=== PATIENT | male | born 1955 | race Caucasian/White ===

== ENCOUNTER 2024-06-25 06:57 | Day surgery (SDC) | payer MEDICARE, SELFPAY ==
[2024-06-20 07:45] VITALS: BMI 34.1
--- NOTE | 2024-06-22 10:36 | P.CONAN_ITS ---
Documented by User: Hamida Rodriguez NP 06/22/24 10:39 HPI - Anesthesia Eval Consult details Narrative: 68yo M for Right Cataract Extraction IOL Insertion No previous cataract on record Hx CMP (EF 68% by MRI 2021 at [facility]) [facility] Past Medical History Medical History Osteoarthritis Fatty liver Cardiomyopathy Obesity Diabetes Nephrolithiasis HTN (hypertension) Surgical History Surgical History Hx of cystoscopy History of hand surgery Social History Social History Are you DNR?: No Advance Directives: No Advance Directives Information Provided: Yes Advance Directives on File: No Recently lost weight without trying: No Eating poorly because of decreased appetite: No Nutrition Risks: No Nutritional Risk Meds Allergies Allergy/AdvReac Type Severity Reaction Status Date / Time amoxicillin [From Augmentin] Allergy Nausea and Verified 06/25/24 08:01 Vomiting clavulanic acid Allergy Nausea and Verified 06/25/24 08:01 [From Augmentin] Vomiting doxycycline Allergy Headache Verified 06/20/24 07:41 Home Medications ?Medication ?Instructions ?Recorded ?Confirmed ?Last Taken ?Type aspirin 81 mg tablet,delayed 81 mg PO DAILY 06/20/24 06/20/24 06/21/24 History release lisinopril 40 mg tablet 40 mg PO DAILY 06/20/24 06/20/24 06/25/24 History rosuvastatin 10 mg tablet 10 mg PO DAILY 06/20/24 06/25/24 06/24/24 History Exam Height,Weight and Vital Signs: Height 5 ft 7 in Weight 98.883 kg Assessment and Plan Assessment Anesthesia Assessment: Chart Reviewed Documented by User: Mary Siddiqi MD 06/25/24 09:23 HPI - Anesthesia Eval Consult details Narrative: 68yo M for Right Cataract Extraction IOL Insertion No previous cataract on record Hx CMP (EF 68% by MRI 2021 at [facility]). Patient states treated for CMP for 13 years but told now that he does not have. Vasovagal episode with IV placement this morning [facility] Active Problems Active Problems: HTN Diet controlled DM EF 68% Past Medical History Medical History Osteoarthritis Fatty liver Cardiomyopathy Obesity Diabetes Nephrolithiasis HTN (hypertension) Family History Family history of problems with anesthesia: No Surgical History Surgical History Hx of cystoscopy History of hand surgery History of Problems with Anesthesia: No Social History Social History Are you DNR?: No Advance Directives: No Advance Directives Information Provided: Yes Advance Directives on File: No Recently lost weight without trying: No Eating poorly because of decreased appetite: No Nutrition Risks: No Nutritional Risk Meds Allergies Allergy/AdvReac Type Severity Reaction Status Date / Time amoxicillin [From Augmentin] Allergy Nausea and Verified 06/25/24 08:01 Vomiting clavulanic acid Allergy Nausea and Verified 06/25/24 08:01 [From Augmentin] Vomiting doxycycline Allergy Headache Verified 06/20/24 07:41 Home Medications ?Medication ?Instructions ?Recorded ?Confirmed ?Last Taken ?Type aspirin 81 mg tablet,delayed 81 mg PO DAILY 06/20/24 06/20/24 06/21/24 History release lisinopril 40 mg tablet 40 mg PO DAILY 06/20/24 06/20/24 06/25/24 History rosuvastatin 10 mg tablet 10 mg PO DAILY 06/20/24 06/25/24 06/24/24 History Exam Height,Weight and Vital Signs: Height 5 ft 7 in Weight 98.883 kg Vital Signs Temp Pulse Resp BP Pulse Ox O2 Del Method 06/25/24 08:57 60 107/54 L 06/25/24 08:52 62 16 102/58 L Room Air 06/25/24 08:42 63 89/33 L 06/25/24 08:32 71 88/46 L 06/25/24 08:10 98.3 F 75 16 138/69 96 Room Air Pertinent Lab Results Pertinent Lab Results: Lab Results 01/13/25 Range/Units 08:34 POC Glucose 131 H (60-115) mg/dL Airway Mallampati Class: III TM Dist: >3cm Neck ROM: Full Denture: Upper Loose/Missing/Broken Teeth: Yes (Full dentures top. Missing 1 tooth bottom front. Denies broken or loose teeth) Heart: RRR + murmur Lungs: CTAB Assessment and Plan Assessment Anesthesia Assessment: Anesthesia Plan Discussed and Chart Reviewed Final Anesthetic Review Family History of Problems with Anesthesia: No History of Problems with Anesthesia: No NPO: Yes ASA Class: II Final Preanesthetic Review: No Changes in Pt Med Stat, Meds/Allgs Chart Reviewed, Consent Obtained/Reviewed and Anes Risks/Benef Reviewed Patient Risk: Intermediate Procedure Risk: Low Assessment/Block/Sedation in SS: Assess/Block/Sedation-SS Anesthetic Plan Anesthetic Plan: MAC: Disposition: Standard PACU
[2024-06-25 08:10] VITALS: BP 138/69; PULSE 75; RESP 16; TEMP 36.8; O2SAT 96
[2024-06-25] MEDS: Cyclopentolate 1 % Ophth Sol 2 ML DRPBTL 1 DROP EYE-RIGHT ×3 (08:11→08:16)
[2024-06-25] MEDS: Tetracaine HCl/PF 0.5% Oph Sol 4 ML DROPS 1 DROP EYE-RIGHT (08:11)
[2024-06-25] MEDS: Tropicamide 1 % Ophth Sol 3 ML BTL 1 DROP EYE-RIGHT ×3 (08:12→08:16)
[2024-06-25] MEDS: Ketorolac Tromethamine 0.5% Op 10 ML DROPS 1 DROP EYE-RIGHT ×3 (08:12→08:17)
[2024-06-25] MEDS: Phenylephrine HCL 2.5% Oph SoL 2 ML BOTTLE 1 DROP EYE-RIGHT ×3 (08:13→08:18)
--- NOTE | 2024-06-25 08:29 | PC.NURSE ---
iv insertion twice with no success and patient started to feel dizzy. no syncopal episode. warm to touch. nondiaphoretic. no cp. monitoring prior to next iv insertion.
[2024-06-25 08:32] VITALS: BP 88/46; PULSE 71
[2024-06-25 08:39] LABS: Glucose, Whole Blood 131 mg/dL (60-115)
[2024-06-25 08:42] VITALS: BP 89/33; PULSE 63
[2024-06-25 08:52] VITALS: BP 102/58; PULSE 62; RESP 16
--- NOTE | 2024-06-25 08:54 | PC.NURSE ---
patient alert and awake joking. manual bp performed. increased bp and fluids remain infusing patently. patient feels better in order to situp.
[2024-06-25 08:57] VITALS: BP 107/54; PULSE 60
--- NOTE | 2024-06-25 09:02 | MHC.SHP ---
Pre-Procedural Eval Section A - 24 Hr Update-Section A only Date of Service: 06/25/24 The patient is an INPATIENT: No Changes since office visit: No Cold of Flu in the past 2 weeks, No New Medical Problems, No Changes in Medication and No Patient answered all questions The patient has been examined within 24 hours of the surgical procedure. The History & Physical has been completed within 30 days and I have reviewed it.: Yes Section B - Complete if H&P > 30 days Chief Complaint: Age-related nuclear cataract, right eye Allergies: Allergies Allergy/AdvReac Type Severity Reaction Status Date / Time amoxicillin [From Augmentin] Allergy Nausea and Verified 06/25/24 08:01 Vomiting clavulanic acid Allergy Nausea and Verified 06/25/24 08:01 [From Augmentin] Vomiting doxycycline Allergy Headache Verified 06/20/24 07:41 Plan Diagnosis/Plan: Unchanged I have reviewed the history and physical and performed a pertinent physical examination on my patient. No changes have occurred unless specified. Time Spent With Patient Time: Total time managing care of this patient today ____ minutes.
--- NOTE | 2024-06-25 09:03 | P.PCNO_ITS ---
Ophthalmology Procedure Procedure Date of Service: 06/25/24 Ophthalmology Viscoelastic: Healon Duet Dual Pack Pro Ophthalmology Lenses: IOL Acrysof MP - MA60AC (23) Procedure Notes: PREOPERATIVE DIAGNOSIS: Decreased visual acuity right eye secondary to cataract POSTOPERATIVE DIAGNOSIS: Same PROCEDURE: Right cataract extraction with intraocular lens insertion SURGEON: Hussain Castro M.D. ANESTHESIA: Topical/MAC ESTIMATED BLOOD LOSS: None COMPLICATIONS: None After obtaining informed consent, the patient was brought to the operating room suite and placed in the supine position. After adequate sedation per anesthesia, topical drops of Tetracaine were given to the right eye. The eye was then prepped and draped in the usual sterile fashion. The operating room microscope was then positioned over the operative eye and a lid speculum placed. A paracentesis was created. Viscoelastic was then instilled into the anterior chamber. A three plane incision was then created temporally, utilizing a 2.85 mm keratome. Capsulotomy forceps were then utilized to create a circular tear capsulotomy. Hydrodissection and hydrodelineation were carried out until adequate mobilization of the nucleus occurred. Phacoemulsification was then utilized to remove the dense central nucl eus followed by removal of the cortical material utilizing the automated aspiration irrigation unit. Viscoelastic was instilled into the posterior capsular bag followed by placement of a posterior chamber intraocular lens without difficulty. The residual Viscoelastic was then removed utilizing the automated IA machine. The wound was checked and found to be watertight. The patient tolerated the procedure well and the lid speculum was removed. Intracameral injection of Vigamox 0.1 mL followed by a subtenon injection of Kenalog-40 0.2 mL were administered. The patient will be seen in the a.m.
[2024-06-25 09:33] VITALS: BP 135/69; PULSE 59; RESP 15; TEMP 36.1; O2SAT 97
== END 2024-06-25 09:45 | disposition home or self-care (01) ==
PROVIDERS: PCP Internal Medicine; Visit Provider Ophthalmology
PROC: (CPT 66985; principal; 2024-06-25 09:00)
DX: H25.11 Age-related nuclear cataract, right eye (principal); H52.4 Presbyopia; H43.393 Other vitreous opacities, bilateral; H18.413 Arcus senilis, bilateral; H11.153 Pinguecula, bilateral; I10 Essential (primary) hypertension; I42.9 Cardiomyopathy, unspecified; E11.9 Type 2 diabetes mellitus without complications; N20.0 Calculus of kidney; K76.0 Fatty (change of) liver, not elsewhere classified; Z79.899 Other long term (current) drug therapy; Z79.82 Long term (current) use of aspirin; Z88.1 Allergy status to other antibiotic agents; Z87.891 Personal history of nicotine dependence
CPT/HCPCS: 66984; 82947; J2250; J3010; J3301; V2630

== ENCOUNTER 2024-07-09 06:59 | Day surgery (SDC) | payer MEDICARE, SELFPAY ==
[2024-06-20 07:49] VITALS: BMI 34.1
--- NOTE | 2024-07-05 13:35 | HO.ANESPROP2 ---
Documented by User: Hamida Rodriguez NP 07/05/24 13:36 HPI - Anesthesia Eval Consult details Narrative: 68yo M for Left Cataract Extraction IOL Insertion Right eye 06/25/24: Fent 50, Midaz 1 [facility] Past Medical History Medical History Osteoarthritis Fatty liver Cardiomyopathy Obesity Diabetes Nephrolithiasis HTN (hypertension) Family History Family history of problems with anesthesia: No Surgical History Surgical History Hx of cystoscopy History of hand surgery History of Problems with Anesthesia: No Social History Social History Advance Directives: No Advance Directives Information Provided: Yes Advance Directives on File: No Recently lost weight without trying: No Eating poorly because of decreased appetite: No Nutrition Risks: No Nutritional Risk Meds Allergies Allergy/AdvReac Type Severity Reaction Status Date / Time amoxicillin [From Augmentin] Allergy Nausea and Verified 06/25/24 08:01 Vomiting clavulanic acid Allergy Nausea and Verified 06/25/24 08:01 [From Augmentin] Vomiting doxycycline Allergy Headache Verified 06/20/24 07:41 Home Medications ?Medication ?Instructions ?Recorded ?Confirmed ?Last Taken ?Type aspirin 81 mg tablet,delayed 81 mg PO DAILY 06/20/24 06/20/24 06/21/24 History release lisinopril 40 mg tablet 40 mg PO DAILY 06/20/24 06/20/24 06/25/24 History rosuvastatin 10 mg tablet 10 mg PO DAILY 06/20/24 06/25/24 06/24/24 History Exam Height,Weight and Vital Signs: Height 5 ft 7 in Weight 98.883 kg Assessment and Plan Assessment Anesthesia Assessment: Chart Reviewed Final Anesthetic Review Family History of Problems with Anesthesia: No History of Problems with Anesthesia: No Documented by User: Magaly Dennis MD 07/09/24 07:26 [facility] Past Medical History Medical History Osteoarthritis Fatty liver Cardiomyopathy Obesity Diabetes Nephrolithiasis HTN (hypertension) Surgical History Surgical History Hx of cystoscopy History of hand surgery Social History Social History Advance Directives: No Advance Directives Information Provided: Yes Advance Directives on File: No Recently lost weight without trying: No Eating poorly because of decreased appetite: No Nutrition Risks: No Nutritional Risk Meds Allergies Allergy/AdvReac Type Severity Reaction Status Date / Time amoxicillin [From Augmentin] Allergy Nausea and Verified 06/25/24 08:01 Vomiting clavulanic acid Allergy Nausea and Verified 06/25/24 08:01 [From Augmentin] Vomiting doxycycline Allergy Headache Verified 06/20/24 07:41 Home Medications ?Medication ?Instructions ?Recorded ?Confirmed ?Last Taken ?Type aspirin 81 mg tablet,delayed 81 mg PO DAILY 06/20/24 06/20/24 06/21/24 History release lisinopril 40 mg tablet 40 mg PO DAILY 06/20/24 06/20/24 06/25/24 History rosuvastatin 10 mg tablet 10 mg PO DAILY 06/20/24 06/25/24 06/24/24 History Exam Airway Mallampati Class: II TM Dist: >3cm Neck ROM: Full Denture: Lower Heart: rrr Lungs: cta Assessment and Plan Assessment Anesthesia Assessment: Anesthesia Plan Discussed Final Anesthetic Review NPO: Yes ASA Class: II Final Preanesthetic Review: No Changes in Pt Med Stat, Meds/Allgs Chart Reviewed and Consent Obtained/Reviewed Patient Risk: Low Procedure Risk: Low Anesthetic Plan Anesthetic Plan: MAC: Disposition: Standard PACU
[2024-07-09] MEDS: Lactated Ringers 500 ML 50 ML IV (07:08)
[2024-07-09] MEDS: Cyclopentolate 1 % Ophth Sol 2 ML DRPBTL 1 DROP EYE-LEFT ×3 (07:12→07:24)
[2024-07-09] MEDS: Phenylephrine HCL 2.5% Oph SoL 2 ML BOTTLE 1 DROP EYE-LEFT ×3 (07:12→07:24)
[2024-07-09] MEDS: Tropicamide 1 % Ophth Sol 3 ML BTL 1 DROP EYE-LEFT ×3 (07:12→07:25)
[2024-07-09] MEDS: Ketorolac Tromethamine 0.5% Op 10 ML DROPS 1 DROP EYE-LEFT ×3 (07:12→07:25)
[2024-07-09] MEDS: Tetracaine HCl/PF 0.5% Oph Sol 4 ML DROPS 1 DROP EYE-LEFT (07:25)
[2024-07-09 07:26] VITALS: BP 121/72; PULSE 78; RESP 18; TEMP 36.7; O2SAT 95
--- NOTE | 2024-07-09 08:07 | MHC.SHP ---
Pre-Procedural Eval Section A - 24 Hr Update-Section A only Date of Service: 07/09/24 The patient is an INPATIENT: No Changes since office visit: No Cold of Flu in the past 2 weeks, No New Medical Problems, No Changes in Medication and No Patient answered all questions The patient has been examined within 24 hours of the surgical procedure. The History & Physical has been completed within 30 days and I have reviewed it.: Yes Section B - Complete if H&P > 30 days Chief Complaint: Age-related nuclear cataract, left eye Allergies: Allergies Allergy/AdvReac Type Severity Reaction Status Date / Time amoxicillin [From Augmentin] Allergy Nausea and Verified 07/09/24 07:39 Vomiting clavulanic acid Allergy Nausea and Verified 07/09/24 07:39 [From Augmentin] Vomiting doxycycline Allergy Headache Verified 07/09/24 07:39 Plan Diagnosis/Plan: Unchanged I have reviewed the history and physical and performed a pertinent physical examination on my patient. No changes have occurred unless specified. Time Spent With Patient Time: Total time managing care of this patient today ____ minutes.
--- NOTE | 2024-07-09 08:08 | HO.PNOPHT ---
Ophthalmology Procedure Procedure Date of Service: 07/09/24 Ophthalmology Viscoelastic: Healon Duet Dual Pack Pro Ophthalmology Lenses: IOL Acrysof MP - MA60AC (23) Procedure Notes: PREOPERATIVE DIAGNOSIS: Decreased visual acuity left eye secondary to cataract POSTOPERATIVE DIAGNOSIS: Same PROCEDURE: Left cataract extraction with intraocular lens insertion SURGEON: Hussain Castro M.D. ANESTHESIA: Topical/MAC ESTIMATED BLOOD LOSS: None COMPLICATIONS: None After obtaining informed consent, the patient was brought to the operation room suite and placed in the supine position. After adequate sedation per anesthesia, topical drops of Tetracaine were given to the left eye. The eye was then prepped and draped in the usual sterile fashion. The operating room microscope was then positioned over the operative eye and a lid speculum placed. A paracentesis was created. Viscoelastic was then instilled into the anterior chamber. A three plane incision was then created temporally, utilizing a 2.85 mm keratome. Capsulotomy forceps were then utilized to create a circular tear capsulotomy. Hydrodissection and hydrodelineation were carried out until adequate mobilization of the nucleus occurred. Phacoemulsification was then utilized to remove the dense central nucleus followed by removal of the cortical material utilizing the automated aspiration irrigation unit. Viscoat elastic was instilled into the posterior capsular bag followed by placement of a posterior chamber intraocular lens without difficulty. The residual Viscoat elastic was then removed utilizing the automated IA machine. The wound was check and found to be watertight. The patient tolerated the procedure well and the lid speculum was removed. Intracameral injection of Vigamox 0.1 mL followed by a subtenon injection of Kenalog-40 0.2 mL were administered. The patient will be seen in the a.m.
[2024-07-09 08:32] VITALS: BP 122/62; PULSE 63; TEMP 36.2; O2SAT 96
== END 2024-07-09 08:34 | disposition home or self-care (01) ==
PROVIDERS: PCP Internal Medicine; Visit Provider Ophthalmology
PROC: (CPT 66985; principal; 2024-07-09 08:30)
DX: H25.12 Age-related nuclear cataract, left eye (principal); H52.4 Presbyopia; H43.393 Other vitreous opacities, bilateral; H18.413 Arcus senilis, bilateral; H11.153 Pinguecula, bilateral; I10 Essential (primary) hypertension; E11.9 Type 2 diabetes mellitus without complications; I42.9 Cardiomyopathy, unspecified; K76.0 Fatty (change of) liver, not elsewhere classified; Z79.899 Other long term (current) drug therapy; Z79.82 Long term (current) use of aspirin; Z87.891 Personal history of nicotine dependence
CPT/HCPCS: 66984; J2250; J3301; V2630